=== PATIENT | female | born 1960 | race African-American/Black ===

== ENCOUNTER → 2020-06-25 | Outpatient (CLI) | payer BC ==
--- NOTE | 2020-06-25 17:18 | RADIOLOGY REPORT (SQ) ---
EXAM DESCRIPTION: CHEST PA/LATERAL IMAGES COMPLETED DATE/TIME: 06/25/2020 5:10 pm REASON FOR STUDY: DYSPNEA, UNSPECIFIED COMPARISON: None. EXAM PARAMETERS: NUMBER OF VIEWS: two views TECHNIQUE: Digital Frontal and Lateral radiographic views of the chest acquired. RADIATION DOSE: NA LIMITATIONS: none FINDINGS: LUNGS AND PLEURA: No opacities, masses or pneumothorax. No pleural effusion. MEDIASTINUM AND HILAR STRUCTURES: No masses or contour abnormalities. HEART AND VASCULAR STRUCTURES: Marked generalized cardiomegaly. Pulmonary vascular congestion. BONES: Degenerative changes at the visualized left glenohumeral joint. HARDWARE: None in the chest. OTHER: No other significant finding. IMPRESSION: 1. Marked generalized cardiomegaly and pulmonary vascular congestion. TECHNICAL DOCUMENTATION: JOB ID: [id number] 2010 [facility]- All Rights Reserved Reading location - IP/workstation name: [email or web address]
== END ==
LOC: OD 16:01
PROVIDERS: ATTEND Internal Medicine Pulmonary Disease
DX: R06.00 Dyspnea, unspecified (principal)
CPT/HCPCS: 36415; 71046; 83880

== ENCOUNTER → 2020-07-31 | Outpatient (CLI) | payer BC ==
[2020-07-31 12:08] LABS: BLOOD UREA NITROGEN 27 mg/dL (7-20); CALCIUM 9.6 mg/dL (8.4-10.2); CHLORIDE 93 mmol/L (98-107); GLUCOSE 87 mg/dL (75-110); POTASSIUM 3.9 mmol/L (3.6-5.0)
[2020-07-31 12:22] LABS: ANION GAP 9 (5-19)
[2020-07-31 13:01] LABS: CARBON DIOXIDE 41 mmol/L (22-30)
== END ==
LOC: OD 10:25
PROVIDERS: ATTEND Internal Medicine Pulmonary Disease
DX: J44.9 Chronic obstructive pulmonary disease, unspecified (principal)
CPT/HCPCS: 36415; 80048

== ENCOUNTER → 2020-10-02 | Outpatient (CLI) | payer BC ==
[2020-10-02 13:44] LABS: BLOOD UREA NITROGEN 31 mg/dL (7-20); CALCIUM 9.2 mg/dL (8.4-10.2); CHLORIDE 87 mmol/L (98-107); GLUCOSE 83 mg/dL (75-110); POTASSIUM 3.4 mmol/L (3.6-5.0)
[2020-10-02 13:56] LABS: ANION GAP 10 (5-19)
[2020-10-02 13:59] LABS: CARBON DIOXIDE 45 mmol/L (22-30)
== END ==
LOC: OD 11:58
PROVIDERS: ATTEND Internal Medicine Pulmonary Disease
DX: J44.9 Chronic obstructive pulmonary disease, unspecified (principal)
CPT/HCPCS: 36415; 80048